=== PATIENT | male | born 1925 | race Caucasian/White ===

== ENCOUNTER 2016-07-16 21:07 | Emergency (ER) | payer MEDICARE, OTHER ==
[~2016-07-16] VITALS: Ht 170.2 cm; Wt 72.7 kg
[~2016-07-16 21:07] MED LIST: ACET-171 PO; FINA5TAB9 PO; IBUP400T22 PO; LOPE2TAB32 PO; MAGN400O4 PO; MULT1CAP33 PO; OMEP20CA11 PO; OXYM30SP18 NS; QUET25TA73 PO; TAMS0.4C98 PO; mylanta PO
[2016-07-16 21:08] VITALS: BP 113/69; PULSE 63; RESP 18; O2SAT 94
--- NOTE | 2016-07-16 21:18 | ED.REPORT ---
HPI-Extremity Problem Lower Date of Service Jul 16, 2016 ED Provider: Kourtney Merlos MD This is an 89 year old male with a history of dementia and hypertension brought to the ED by EMS from [facility] complaining of R hip pain s/p GLF that occurred just prior to arrival. En route, pt was combative, BP 130/80, HR 76, 3 versed was administered. In the ED, interview is limited, pt is demented and unable to answer questions appropriately. Nursing Notes Stated Complaint: R HIP PAIN S/P FALL Chief Complaint: Extremity Trauma Nursing Notes Reviewed: Yes Allergies: Coded Allergies: RAMON Inhibitors (Verified Allergy, Unknown, 07/16/16) Sulfa (Sulfonamide Antibiotics) (Verified Allergy, Unknown, 07/16/16) Scheduled Finasteride (Finasteride) 5 Mg Tablet 5 MG PO DAILY Multivitamin (Multivitamins) 1 Each Capsule 1 EACH PO DAILY Omeprazole (Omeprazole) 20 Mg Capsule.dr 20 MG PO DAILY Quetiapine Fumarate (Quetiapine Fumarate) 25 Mg Tablet 25 MG PO HS Tamsulosin (Flomax) 0.4 Mg Capsule 0.4 MG PO HS Scheduled PRN ([mylanta]) 30 ML PO Q2hrs PRN PRN For Indigestion Acetaminophen (Acetaminophen) 500 Mg Tablet 500 MG PO Q6H PRN PRN For Pain Ibuprofen (Ibuprofen) 400 Mg Tablet 800 MG PO TID PRN PRN gout Magnesium Hydroxide (Milk of Magnesia) 400 Mg/5 Ml Oral.susp 30 ML PO DAILY PRN PRN For Constipation Oxymetazoline HCl (Nasal [place] Sinus) 30 Ml [place] 4-6 SPRAYS NS PRN For Epistaxis Miscellaneous Medications Loperamide (Loperamide) 2 Mg Tablet 2 MG PO 2 tabs after first loose stool then 1 tab with each subsequent loose stool maximum of 8tabs/24 hours General Time Seen by MD: 21:17 Chief Complaint Hip injury right Hx Obtained From: Patient Arrived By: Ambulance Onset Occurred: Just prior to arrival Symptom Duration: Since onset Location: : Hip right Recent Healthcare: No recent doctor visit, No recent hospitalization Similar Sx Previous: No Past Medical History Past Medical History Dementia Hypertension Hypercholesterolemia Family History Noncontributory Smoking History Never Smoker Social History The patient lives at [facility] Alcohol Use: Denies alcohol use Drug Use: Denies drug use Other Social History: , Local resident Ambulatory Status Independent Review of Systems Unable to Obtain ROS Mental status Constitutional: Denies: Chills, Fever Musculoskeletal: Reports: Joint pain Physical Exam Initial Vital Signs Vital Signs (First) Date Time Temp Pulse Resp B/P Pulse Ox O2 Delivery O2 Flow Rate FiO2 07/16/16 21:08 36.1 63 18 113/69 94 Room Air Initial VS: Reviewed Head / Eyes: Atraumatic, Normocephalic, PERRL ENT: Mucous membranes moist, Conjunctiva normal, No scleral icterus Neck: Supple, Non-tender, Full range of motion Respiratory: Breath sounds normal, Clear to auscultation, No respiratory distress Cardiovascular: Regular rate & rhythm, Heart sounds normal, Intact distal pulses Abdomen / GI: Soft, Non-tender, No guarding, No rebound, No distention Upper Extremities: Vascular intact, Neuro intact, No swelling, No tenderness Skin: Warm, Dry, No cyanosis Lower Extremity / Pelvis / MS: Neurologic intact, Vascular intact Moves all 4 extremities without pain. No obvious hip deformity. Ankle / Foot: Atraumatic, Inspection NL, Full range of motion, No swelling, No erythema, Non-tender, No deformity, Neurologic intact, Vascular intact, No edema 2+ DP and PT in R foot General/Constitutional: Awake Demented, unable to answer questions. Interpretation & Diagnostics Interpretation & Diagnostics: HIP X-RAY status post orthopedic surgery on R hip, no acute fractuer wet read ED physician Lab Results Interpretation Test 07/16/16 21:15 Hold Purple Top Tube Received (Received) Hold Red Top Tube Received (Received) Re-Eval/Medical Decision Med Decision/Clinical Course 89-year-old male with past medical history of dementia who is supposed to be comfort care only who was transported against the will of his to the emergency department after sustaining a ground-level fall with concern for right hip pain. Differential diagnosis includes but is not limited to fracture versus dislocation versus contusion versus abrasion. Patient's exam at this time is unremarkable and he is moving all 4 extremities though he does not follow commands. I do not appreciate any pelvic instability and he does not seem to be in pain when I manipulate his right leg. By my view, x-ray shows old orthopedic surgery, without any acute abnormality. Patient was discharged back to group home with follow-up with his primary care physician Counseled Regarding: Diagnosis, Lab results, Need for follow-up, When/why to return to ED Discharge & Departure Impression: Primary Impression: Fall from ground level Disposition: Home Discharge Condition All VS Reviewed: Yes Condition: Stable Patient Instructions: Fall Prevention for Older Adults (GEN) Additional Instructions: Your imaging studies were reassuring today. Follow-up with your primary care provider. Return to the emergency department for any new or worsening symptom Referrals: Deon Myles MD (PCP) Scribe Attestation Portions of this note were transcribed by Augustin Gilliam. I, Dr. Merlos personally performed the history, physical exam and medical decision-making; I reviewed and confirmed the accuracy of the information in the transcribed note. Signed by: erika Camarena. 07/16/2016, 23:00. Kourtney Merlos MD Jul 16, 2016 21:18 AUGUSTIN GILLIAM Jul 16, 2016 21:20
[2016-07-16 22:16] VITALS: BP 180/151; O2SAT 89
[2016-07-17 00:22] VITALS: BP 117/56; PULSE 80; RESP 18; O2SAT 93
[2016-07-17 02:08] VITALS: BP 105/48; PULSE 79; RESP 20; O2SAT 91
--- NOTE | 2016-07-17 07:18 | DRSVH ---
PROCEDURE: X-RAY PELVIS W/LAT HIP (RT) ([id number]) INDICATIONS: pain/fall TECHNIQUE: AP pelvis with lateral view(s) of the right hip(s). COMPARISON: [facility], , PELVIS W/LAT HIP (RT) (PNL), 07/02/2009, 14:42. FINDINGS: Bones: No fractures or dislocations. Intact screw fixation of the proximal right femur. Lower lumbar discogenic changes and bilateral hip joint degeneration Pelvic ring appears intact. No suspicious bony lesions. Soft tissues: The visualized bowel gas pattern is normal. No suspicious soft tissue calcifications. IMPRESSION: No fracture Dictated by: Henrique Smith M.D. on 07/17/2016 at 7:14 Approved by: Henrique Smith M.D. on 07/17/2016 at 7:17
== END 2016-07-17 02:11 | disposition home or self-care (01) ==
LOC: SED 21:07
DX: M25.551 Pain in right hip (principal); W05.0XXA Fall from non-moving wheelchair, initial encounter; Y92.129 Unspecified place in nursing home as the place of occurrence of the external cause; Y93.89 Activity, other specified; Y99.8 Other external cause status; R45.1 Restlessness and agitation; G30.9 Alzheimer's disease, unspecified; I10 Essential (primary) hypertension; E78.00 Pure hypercholesterolemia, unspecified; E11.9 Type 2 diabetes mellitus without complications; Z88.8 Allergy status to other drugs, medicaments and biological substances; Z88.2 Allergy status to sulfonamides
CPT/HCPCS: 73501; 96372; 99285; J2060

== ENCOUNTER 2016-07-17 14:03 | Emergency (ER) | payer MEDICARE, OTHER ==
[2016-07-17 14:31] VITALS: BP 131/93; PULSE 67; O2SAT 97
[2016-07-17] MEDS ORDERED: Haloperidol Decanoate 50 mg/mL Inj IM ONE (17:00)
[2016-07-17] MEDS ORDERED: Haloperidol 5 mg/mL Inj IM ONE (17:10)
[2016-07-17 18:40] VITALS: BP 150/77; PULSE 77; O2SAT 88
[2016-07-17 18:42] VITALS: O2SAT 97
--- NOTE | 2016-07-17 18:54 | DRSVH ---
PROCEDURE: X-RAY LEFT KNEE, THREE VIEWS ([id number]) INDICATIONS: ground level fall, unable to ambulate TECHNIQUE: 3 views of the knee were acquired. COMPARISON: None. FINDINGS: Bones: No fractures or dislocations. No suspicious bony lesions. Advanced tricompartmental joint de generation. There are multiple loose bodies projecting in the posterior joint space Soft tissues: No joint effusion. No suspicious soft tissue calcifications. Numerous vascular calci fications. IMPRESSION: Advanced joint degeneration, which limits the study sensitivity however no gross or displ aced fracture seen. Dictated by: Henrique Smith M.D. on 07/17/2016 at 18:50 Approved by: Henrique Smith M.D. on 07/17/2016 at 18:52
--- NOTE | 2016-07-17 19:44 | ED.REPORT ---
HPI-Extremity Problem Lower Date of Service Jul 17, 2016 ED Provider: Leslie Sutton Nursing Notes Stated Complaint: GLF Chief Complaint: Multiple Trauma/Fall Nursing Notes Reviewed: Yes Allergies: Coded Allergies: RAMON Inhibitors (Verified Allergy, Unknown, 07/16/16) Sulfa (Sulfonamide Antibiotics) (Verified Allergy, Unknown, 07/16/16) Scheduled Finasteride (Finasteride) 5 Mg Tablet 5 MG PO DAILY Multivitamin (Multivitamins) 1 Each Capsule 1 EACH PO DAILY Omeprazole (Omeprazole) 20 Mg Capsule.dr 20 MG PO DAILY Quetiapine Fumarate (Quetiapine Fumarate) 25 Mg Tablet 25 MG PO HS Tamsulosin (Flomax) 0.4 Mg Capsule 0.4 MG PO HS Scheduled PRN ([mylanta]) 30 ML PO Q2hrs PRN PRN For Indigestion Acetaminophen (Acetaminophen) 500 Mg Tablet 500 MG PO Q6H PRN PRN For Pain Ibuprofen (Ibuprofen) 400 Mg Tablet 800 MG PO TID PRN PRN gout Magnesium Hydroxide (Milk of Magnesia) 400 Mg/5 Ml Oral.susp 30 ML PO DAILY PRN PRN For Constipation Oxymetazoline HCl (Nasal [place] Sinus) 30 Ml [place] 4-6 SPRAYS NS PRN For Epistaxis Miscellaneous Medications Loperamide (Loperamide) 2 Mg Tablet 2 MG PO 2 tabs after first loose stool then 1 tab with each subsequent loose stool maximum of 8tabs/24 hours General Time Seen by MD: 16:15 Transferred From: residential ([facility]) Chief Complaint Leg injury left GLF yesterday, difficulty with ambulation. Seen in ER last night and had hip/pelvis x-rays, normal. Today still complaining of leg pain and reluctant to ambulate. Sent in by ambulance against spouse's wishes. Pt is a comfort care only. Pt is combative and swinging at staff upon arrival. Hx Obtained From: Spouse, Son Unable to Obtain Hx: Uncooperative Arrived By: Ambulance Onset Occurred: Yesterday Symptom Duration: Since onset Caused by: Fall on ground Context: Occurred at: Home injury Location: : Knee left: Leg left Quality: Painful Severity: Current: Moderate Severity: Maximum: Moderate Additional Notes: Family denies any other injury. Pt with no other complaints. Pertinent Negative: Pt denies other symptoms Exacerbated by: Range of motion Pertinent Negative: Relieved by nothing Recent Healthcare: Recent doctor visit, Recent testing Similar Sx Previous: Yes Past Medical History Past Medical History Dementia Hypertension Hypercholesterolemia Family History Noncontributory Smoking History Never Smoker Social History The patient lives at [facility] Alcohol Use: Denies alcohol use Drug Use: Denies drug use Other Social History: , Local resident Ambulatory Status Independent Review of Systems Basic Review of Systems Eyes: No discharge ENT: No nasal congestion, No pharyngeal pain Respiratory: No shortness of breath, No cough, No wheeze Cardiovascular: No chest pain GI: No abdominal pain, No nausea, No vomiting Hematologic: No bleeding, No bruising Endocrine: No cold intolerance, No heat intolerance, No weight gain, No weight loss Allergy / Immune: No allergy Constitutional: Denies: Fatigue, Fever Musculoskeletal: Reports: Extremity pain, Joint pain, Denies: Back pain, Extremity swelling, Joint swelling Skin: Denies Bruising, Denies Diaphoresis, Denies Rash, Denies Swelling Neurologic: Reports: Confusion (late stage dementia), Problem walking, Denies: Bladder dysfunction, Bowel dysfunction, Change LOC, Headache, Seizure , Shaking Complete sys rev & neg: except as marked. Psychiatric: Reports: Agitation, Confusion, Hostile, Unable to control self, Denies: Change mental status Physical Exam Initial Vital Signs Vital Signs (First) Date Time Temp Pulse Resp B/P Pulse Ox O2 Delivery O2 Flow Rate FiO2 07/17/16 14:31 67 131/93 97 Room Air 07/17/16 18:40 36.9 07/17/16 18:42 3 Initial VS: Reviewed Head / Eyes: Atraumatic, Normocephalic, PERRL ENT: Mucous membranes moist, Conjunctiva normal, No scleral icterus Neck: Supple, Non-tender, Full range of motion Respiratory: Breath sounds normal, Clear to auscultation, No respiratory distress Cardiovascular: Regular rate & rhythm, Heart sounds normal, Intact distal pulses Lymphatic: No lymphadenopathy Upper Extremities: Vascular intact, Neuro intact, No swelling, No tenderness Skin: Warm, Dry, No cyanosis Neurologic: Alert, Oriented, Nonfocal Lower Extremity / Pelvis / MS: Atraumatic, Inspection NL, Full range of motion , No swelling, No deformity Lower Ext Brief Normals: Hip R exam normal, Hip L exam normal, Thigh R exam normal, Thigh L exam normal, Knee R exam normal, Knee L exam normal, Leg / calf R exam normal, Leg / calf L exam normal, Ankle R exam normal, Ankle L exam normal, Foot R exam normal, Foot L exam normal Pelvis: Negative: Tender an-sup iliac crest Joint above & below: affected area is NL. Trauma / Burn / Environmental: Negative: Abrasion, Contusion, Ecchymosis, Hematoma no apparent injury upon exam Interpretation & Diagnostics X-Ray Interpretation Xray Interpretation: FINDINGS: Bones: No fractures or dislocations. No suspicious bony lesions. Advanced tricompartmental joint degeneration. There are multiple loose bodies projecting in the posterior joint space Soft tissues: No joint effusion. No suspicious soft tissue calcifications. Numerous vascular calcifications. IMPRESSION: Advanced joint degeneration, which limits the study sensitivity however no gross or displaced fracture seen. Dictated by: Henrique Smith M.D. on 07/17/2016 at 18:50 X-Ray Ordered: Knee left Interpretation / Wet Read by: Interpret - Radiologist Discharge & Departure Impression: Primary Impression: Fall from ground level Additional Impression: Leg pain, left Disposition: Transfer, [employer]: pt transferred to [place] via S ambulance due to advanced dementia and being sedated Transfer Reason: Tertiary care Patient Status: Stable Patient Informed: Unable Discharge Condition All VS Reviewed: Yes Condition: Improved Patient Instructions: Leg Cramps (ED) Additional Instructions: The x-rays did not show a broken bone in his leg. I believe he has pain to the leg from the fall and this is making it difficult for him to walk. Please see if [place] can give some additional help with his care while he heals. Please speak to Dr. Myles if you wish to have medications prescribed for agitation. Return to the ER for any other concerns. Referrals: Deon Myles MD (PCP) EDSupervising Provider for APC: Ozzy Wiggins MD, Lora L ARNP Jul 17, 2016 19:44
[2016-07-17 20:55] VITALS: BP 142/115; PULSE 91; O2SAT 95
== END 2016-07-17 20:57 | disposition home or self-care (01) ==
LOC: EDUNIT# 14:03 → SED 14:03 → EDBD 14:03 → SED 20:57
DX: M79.605 Pain in left leg (principal); W18.30XA Fall on same level, unspecified, initial encounter; Y93.89 Activity, other specified; Y92.019 Unspecified place in single-family (private) house as the place of occurrence of the external cause; Y99.8 Other external cause status; I10 Essential (primary) hypertension; E78.00 Pure hypercholesterolemia, unspecified; F03.90 Unspecified dementia, unspecified severity, without behavioral disturbance, psychotic disturbance, mood disturbance, and anxiety; Z88.2 Allergy status to sulfonamides; Z88.8 Allergy status to other drugs, medicaments and biological substances
CPT/HCPCS: 73562; 96372; 99284; J1630; J2060